=== PATIENT | female | born 1945 | race Caucasian/White ===

== ENCOUNTER → 2016-10-03 | Outpatient (CLI) | payer MEDICARE, OTHER ==
[~2016-10-03] MED LIST: ALEVE 220MG220 MG PO; BACTRIM DS 8001 TAB PO; DARVOCET A500 51 TAB PO; DOXYCYCLINE 10100 MG PO; FENTANYL BC; HCTZ; K-DUR 10 MEQ T10 MEQ PO; LASIX 20MG TABL20 MG PO; LEVOTHROID0.125 MG PO; LISINOPRIL5 MG PO; LORTAB 5/500 501 TAB PO; METOPROLOL SUCC25 MG PO; NEURONTIN600 MG/TAB PO; PHENERGAN 25 TA25 MG PO; PHENERGAN25 M1 PO; PRIL40 PO; SYNTHROID 0.10.15 MG PO; TOPROL XL50 MG PO; TYLENOL 325MG325 MG PO; VICODIN 5/5001 UDTAB PO; ZOFRAN 4MG T4 MG/TAB PO; ZOFRAN4 M1 PO; stool softener
== END ==
LOC: COL.RAD 10-02 10:30
DX: M25.552 Pain in left hip (principal); M16.12 Unilateral primary osteoarthritis, left hip
CPT/HCPCS: J3301; Q9967

== ENCOUNTER → 2016-11-11 | Outpatient (CLI) | payer MEDICARE, OTHER | LOC: COL.RAD 09:41 | DX: Z12.11 Encounter for screening for malignant neoplasm of colon (principal); K57.30 Diverticulosis of large intestine without perforation or abscess without bleeding; M16.12 Unilateral primary osteoarthritis, left hip; N28.9 Disorder of kidney and ureter, unspecified ==

== ENCOUNTER → 2017-02-20 | Outpatient (CLI) | payer MEDICARE, OTHER | LOC: COL.RAD 10:16 | DX: M25.552 Pain in left hip (principal) | CPT/HCPCS: J3301; Q9967 ==

== ENCOUNTER → 2017-05-01 | Outpatient (CLI) | payer MEDICARE, OTHER ==
[~2017-05-01] MED LIST changes: +ADDERALL XR20 MG PO; +CARAFATE 1GM1 G PO; +CIPRO 500MG TA500 MG PO; +COPAXONE 20M20 MG/M1 SQ; +FLAGYL500 MG PO; +K-TAB20 PO; +LASIX 40MG TABL40 MG PO; -LISINOPRIL5 MG PO; +MIRALAX PA17 GM/Dose PO; -PRIL40 PO; +PRILOSEC 20MG20 MG PO; +PRINIVIL20 MG PO; -SYNTHROID 0.10.15 MG PO; +SYNTHROID0.112 MG/T PO; +ZYVOX 600MG600 MG PO; +[UNRECOGNIZED DRUG - OTHER] PO
== END ==
LOC: COL.RAD 10:00
DX: G35 Multiple sclerosis (principal); R90.82 White matter disease, unspecified
CPT/HCPCS: A9585

== ENCOUNTER → 2017-05-25 | Outpatient (CLI) | payer MEDICARE, OTHER ==
[~2017-05-25] MED LIST changes: -ADDERALL XR20 MG PO; -CARAFATE 1GM1 G PO; -CIPRO 500MG TA500 MG PO; -COPAXONE 20M20 MG/M1 SQ; -FLAGYL500 MG PO; -K-TAB20 PO; -LASIX 40MG TABL40 MG PO; +LISINOPRIL5 MG PO; -MIRALAX PA17 GM/Dose PO; +PRIL40 PO; -PRILOSEC 20MG20 MG PO; -PRINIVIL20 MG PO; +SYNTHROID 0.10.15 MG PO; -SYNTHROID0.112 MG/T PO; -ZYVOX 600MG600 MG PO; -[UNRECOGNIZED DRUG - OTHER] PO
== END ==
LOC: COL.RAD 10:20
DX: M16.12 Unilateral primary osteoarthritis, left hip (principal)
CPT/HCPCS: J3301; Q9967

== ENCOUNTER → 2017-08-26 | Outpatient (CLI) | payer MEDICARE, OTHER | LOC: COL.RAD 10:03 | DX: M16.11 Unilateral primary osteoarthritis, right hip (principal) | CPT/HCPCS: J3301; Q9967 ==

== ENCOUNTER → 2017-12-25 | Outpatient (CLI) | payer MEDICARE, OTHER | LOC: COL.RAD 12-24 09:00 | DX: M25.552 Pain in left hip (principal) | CPT/HCPCS: J3301; Q9967 ==

== ENCOUNTER 2018-01-07 13:30 | Outpatient (RCR) | payer MEDICARE, OTHER ==
[2007-06-24 07:46] VITALS: BP 139/62
[2018-01-05 15:00] VITALS: BP 122/83; PULSE 66; TEMP 98
[2018-01-06 14:16] VITALS: BP 120/48; PULSE 64; TEMP 98.2
[~2018-01-07] VITALS: Ht 170.2 cm; Wt 83.6 kg
[~2018-01-07 13:30] MED LIST changes: -LISINOPRIL5 MG PO; +PRINIVIL20 MG PO
[2018-01-07 13:36] VITALS: BP 128/62; PULSE 70; TEMP 97.7
[2018-01-07] MEDS ORDERED: K-TAB20 PO (15:05)
[2018-01-07] MEDS ORDERED: LASIX 20MG TABL20 MG PO (15:05)
[2018-01-07] MEDS ORDERED: MIRALAX PA17 GM/Dose PO (15:07)
[2018-01-07] MEDS ORDERED: ADDERALL XR20 MG PO (17:41)
== END 2018-01-07 15:41 | disposition home or self-care (01) ==
LOC: EUO 13:30
DX: G35 Multiple sclerosis (principal)
CPT/HCPCS: J2930; J7050

== ENCOUNTER 2018-02-10 09:00 | Outpatient (RCR) | payer MEDICARE, OTHER ==
[~2018-02-10 09:00] MED LIST changes: +ADDERALL XR20 MG PO; +K-TAB20 PO; +MIRALAX PA17 GM/Dose PO
== END 2018-04-29 10:19 | disposition home or self-care (01) ==
LOC: MKS.ESL.PT 09:00
DX: G35 Multiple sclerosis (principal); R53.83 Other fatigue
CPT/HCPCS: G8978-GP; G8979-GP

== ENCOUNTER → 2018-05-18 | Outpatient (CLI) | payer MEDICARE, OTHER | LOC: COL.RAD 05-04 08:00 | DX: M16.12 Unilateral primary osteoarthritis, left hip (principal) | CPT/HCPCS: J3301; Q9967 ==

== ENCOUNTER 2018-07-18 09:14 | Observation (INO) | payer MEDICARE, OTHER ==
[~2018-07-18] VITALS: Ht 165.1 cm; Wt 89.4 kg
[2018-07-18 09:41] LABS: BASO % 0.5 % (0.0-2.0); EOS # 0.2 (0.0-0.7); EOS % 2.9 % (0-4.0); GRAN # 6.3 (1.4-6.5); GRAN % 74.2 % (42.2-75.2); HEMOGLOBIN 15.1 g/dl (12.5-16.0); LYMPH # 1.3 (1.2-3.4); LYMPH % 14.9 % (20.0-51.0); MEAN CELL VOLUME 87 fl (80.0-100.0); MEAN CORPUSCULAR HEMOGLOBIN 29 pg (27.0-31.0); MEAN CORPUSCULAR HGB CONC 34 g/dl (33.0-37.0); MEAN PLATELET VOLUME 9.8 fl (7.4-10.4); MONO # 0.6 (0.1-0.6); MONO % 7.3 % (1.7-9.3); PLATELET COUNT 236 K/mm3 (130-400); RED BLOOD COUNT 5.17 M/mm3 (4.10-5.30); REDCELL DISTRIBUTION WIDTH-CV 13.5 % (11.5-14.5)
[2018-07-18 09:52] LABS: ALANINE AMINOTRANSFERASE 30 U/L (9-52); ALBUMIN 3.5 gm/dL (3.5-5.0); ALKALINE PHOSPHATASE 68 U/L (50-136); ANION GAP 4 mmol/L (7-16); AST,SGOT 22 U/L (15-37); BILIRUBIN,TOTAL 0.5 mg/dL (0.0-1.0); BLOOD UREA NITROGEN 21 mg/dL (7-17); CARBON DIOXIDE 30 mmol/L (22-30); CHLORIDE 101 mmol/L (98-107); CREATININE, serum 0.78 mg/dL (0.52-1.25); GLUCOSE 117 mg/dL (74-106); LIPASE 33 U/L (23-300); MAGNESIUM 1.7 mg/dL (1.6-2.3); PHOSPHOROUS 3.5 mg/dL (2.5-4.5); POTASSIUM 4.4 mmol/L (3.4-5.0); SODIUM 135 mmol/L (137-145); TOTAL PROTEIN 6.2 gm/dL (6.4-8.2)
[2018-07-18 09:57] VITALS: BP 116/60; PULSE 47
[2018-07-18] MEDS ORDERED: COPAXONE 20M20 MG/M1 SQ (09:57)
[2018-07-18 10:20] LABS: TROPONIN-I < 0.012 ng/mL (0.000-0.034)
[2018-07-18] MEDS ORDERED: CARAFATE 1GM1 G PO (13:55)
[2018-07-18 15:52] LABS: COLLECTION METHOD CLEAN CATCH
[2018-07-18 16:04] LABS: PH 6 (5-8); SQUAMOUS EPITHELIAL 0-2 /hpf; URINE APPEARANCE Clear; URINE BACTERIA None Seen /hpf; URINE BILIRUBIN Negative (NEGATIVE); URINE BLOOD Negative (NEGATIVE); URINE COLOR Yellow; URINE GLUCOSE Negative (NEGATIVE); URINE KETONE Negative (NEGATIVE); URINE LEUKOCYTE ESTERASE Negative (NEGATIVE); URINE NITRATE Negative (NEGATIVE); URINE PROTEIN(semi-quant) Negative (NEGATIVE); URINE RBC 0-2 /hpf; URINE UROBILINOGEN Negative (NEGATIVE)
[2018-07-18 16:20] VITALS: BP 161/74; PULSE 51; TEMP 98.2
[2018-07-18 20:01] VITALS: BP 150/55; PULSE 61; TEMP 97.9
[2018-07-18 20:30] VITALS: BP 160/62; PULSE 53; TEMP 98.2
[2018-07-19 01:00] VITALS: BP 117/31; PULSE 74; TEMP 98.4
[2018-07-19 04:27] VITALS: BP 135/50; PULSE 81; TEMP 98.5
[2018-07-19 07:14] VITALS: BP 122/52; PULSE 62; TEMP 98.4
[2018-07-19 07:50] LABS: BASO % 0.7 % (0.0-2.0); EOS # 0.2 (0.0-0.7); EOS % 4.2 % (0-4.0); GRAN # 2.9 (1.4-6.5); GRAN % 63.8 % (42.2-75.2); LYMPH # 0.9 (1.2-3.4); LYMPH % 20.6 % (20.0-51.0); MEAN CELL VOLUME 88 fl (80.0-100.0); MEAN CORPUSCULAR HGB CONC 33 g/dl (33.0-37.0); MEAN PLATELET VOLUME 10.5 fl (7.4-10.4); MONO # 0.5 (0.1-0.6); MONO % 10.7 % (1.7-9.3); PLATELET COUNT 166 K/mm3 (130-400); REDCELL DISTRIBUTION WIDTH-CV 13.7 % (11.5-14.5)
[2018-07-19 07:51] LABS: HEMATOCRIT 35.2 % (37.0-47.0); HEMOGLOBIN 11.6 g/dl (12.5-16.0); MEAN CORPUSCULAR HEMOGLOBIN 29 pg (27.0-31.0)
[2018-07-19 08:04] LABS: CALCIUM 8.5 mg/dL (8.4-10.2); CREATININE, serum 0.65 mg/dL (0.52-1.25)
[2018-07-19 11:36] VITALS: BP 153/75; PULSE 66; TEMP 98.9
[2018-07-19] MEDS ORDERED: CIPRO 500MG TA500 MG PO (15:13)
[2018-07-19] MEDS ORDERED: FLAGYL500 MG PO (15:13)
[2018-07-19 15:32] VITALS: BP 175/58; PULSE 65; TEMP 98.2
== END 2018-07-19 20:00 | disposition home or self-care (01) ==
LOC: COL.ER 09:14 → MEDICAL 12:05
PROVIDERS: Emergency Medicine; Hospitalist
DX: R53.1 Weakness (principal); K52.9 Noninfective gastroenteritis and colitis, unspecified; E87.1 Hypo-osmolality and hyponatremia; E03.9 Hypothyroidism, unspecified; I10 Essential (primary) hypertension; R79.89 Other specified abnormal findings of blood chemistry; G35 Multiple sclerosis; M16.9 Osteoarthritis of hip, unspecified; Z90.710 Acquired absence of both cervix and uterus; Z85.41 Personal history of malignant neoplasm of cervix uteri; Z90.49 Acquired absence of other specified parts of digestive tract; G89.29 Other chronic pain; Z88.0 Allergy status to penicillin; Z88.5 Allergy status to narcotic agent; Z88.8 Allergy status to other drugs, medicaments and biological substances; Z88.1 Allergy status to other antibiotic agents; Z86.14 Personal history of Methicillin resistant Staphylococcus aureus infection; Z82.3 Family history of stroke; Z82.49 Family history of ischemic heart disease and other diseases of the circulatory system; Z83.3 Family history of diabetes mellitus; Z80.42 Family history of malignant neoplasm of prostate
CPT/HCPCS: G0378; G8978-GP; G8979-GP; G8987-GO; G8988-GO; J0744; J1644; J7030; Q9967

== ENCOUNTER 2019-03-08 19:44 | Inpatient (IN) | payer MEDICARE, OTHER ==
[~2019-03-08] VITALS: Ht 165.1 cm; Wt 91.6 kg
[~2019-03-08 19:44] MED LIST changes: +CARAFATE 1GM1 G PO; +CIPRO 500MG TA500 MG PO; +COPAXONE 20M20 MG/M1 SQ; +FLAGYL500 MG PO; +LASIX 40MG TABL40 MG PO; -PRIL40 PO; +PRILOSEC 20MG20 MG PO; -SYNTHROID 0.10.15 MG PO; +SYNTHROID0.112 MG/T PO
[2019-03-08 20:49] LABS: BASO % 0.3 % (0.0-2.0); EOS # 0.1 (0.0-0.7); EOS % 1.1 % (0-4.0); GRAN # 9.4 (1.4-6.5); GRAN % 88.5 % (42.2-75.2); HEMATOCRIT 38.4 % (37.0-47.0); LYMPH # 0.7 (1.2-3.4); LYMPH % 6.2 % (20.0-51.0); MEAN CELL VOLUME 88 fl (80.0-100.0); MEAN CORPUSCULAR HEMOGLOBIN 30 pg (27.0-31.0); MEAN CORPUSCULAR HGB CONC 34 g/dl (33.0-37.0); MEAN PLATELET VOLUME 8.9 fl (7.4-10.4); MONO # 0.4 (0.1-0.6); MONO % 3.6 % (1.7-9.3); PLATELET COUNT 199 K/mm3 (130-400); RED BLOOD COUNT 4.37 M/mm3 (4.10-5.30); REDCELL DISTRIBUTION WIDTH-CV 13.6 % (11.5-14.5)
[2019-03-08 21:15] LABS: ALANINE AMINOTRANSFERASE 12 U/L (9-52); ALBUMIN 3.9 gm/dL (3.5-5.0); ALKALINE PHOSPHATASE 81 U/L (50-136); ANION GAP 11 mmol/L (7-16); AST,SGOT 24 U/L (15-37); BILIRUBIN,TOTAL 0.4 mg/dL (0.0-1.0); BLOOD UREA NITROGEN 22 mg/dL (7-17); CALCIUM 9.4 mg/dL (8.4-10.2); CARBON DIOXIDE 27 mmol/L (22-30); CHLORIDE 96 mmol/L (98-107); GLUCOSE 97 mg/dL (74-106); POTASSIUM 4.1 mmol/L (3.4-5.0); SODIUM 134 mmol/L (137-145); TOTAL PROTEIN 6.8 gm/dL (6.4-8.2)
[2019-03-08 21:16] LABS: C-REACTIVE PROTEIN < 0.5 mg/dL (0.0-0.9)
[2019-03-08] MEDS ORDERED: DOXYCYCLINE 10100 MG PO (21:49)
[2019-03-09] VITALS (7 sets, daily range): BP systolic 117–152; BP diastolic 36–61; PULSE 69–89; TEMP 98–98.7
[2019-03-09] MEDS ORDERED: [UNRECOGNIZED DRUG - OTHER] PO (00:09)
--- NOTE | 2019-03-09 00:48 | NUR ---
Patient arrived to medical floor room 352 at approximately 2325. Alert and oriented x4, and able to make needs known. Denies having pain and discomfort, except does report pain to BLE if pressed on. Peripheral IV site to right AC flushed. Site is without redness, warmth, swelling, and pain. Completed IV Rocephin when arrived from ER. Denies having SOB and dyspnea. Respirations even and unlabored. LS CTA. Denies chest pain and discomfort. HRR. BSAx4. Abdomen soft and non-tender. Denies nausea, vomiting, diarrhea, and upset stomach. Reports occasional constipation, but deniess at this time. 3+ edema BLE. Reports lymph nodes were taken out during hysterectomy and edema is chronic. LLE with errythema and warmth. Four puncture sites noted from cat bite, but are not open. No drainage to area noted. Patient has a history of MRSA. Put on contact isolation. Given OJ, water, crackers, and ice-cream as requested. Voices no other questions, needs, or concerns at this time. Sitting up in bed watching TV at this time. Call light is within reach.
--- NOTE | 2019-03-09 05:29 | NUR ---
Patient has been calling for assistance with toileting. Has been using facility walker to help with mobility. Denies pain and discomfort to LLE. Reports she just feels weak. Stand by assist used. Gait slightly unsteady. Resting in bed with eyes closed at this time. Call light is within reach.
[2019-03-09 06:46] LABS: MEAN CELL VOLUME 88 fl (80.0-100.0); MEAN CORPUSCULAR HEMOGLOBIN 30 pg (27.0-31.0); MEAN CORPUSCULAR HGB CONC 34 g/dl (33.0-37.0); MEAN PLATELET VOLUME 9.1 fl (7.4-10.4); PLATELET COUNT 177 K/mm3 (130-400); RED BLOOD COUNT 4.04 M/mm3 (4.10-5.30); REDCELL DISTRIBUTION WIDTH-CV 13.7 % (11.5-14.5)
[2019-03-09 06:48] LABS: HEMATOCRIT 35.5 % (37.0-47.0)
[2019-03-09 07:02] LABS: CALCIUM 8.8 mg/dL (8.4-10.2); CREATININE, serum 0.7 (0.52-1.25); POTASSIUM 4.2 mmol/L (3.4-5.0)
--- NOTE | 2019-03-09 07:03 | NUR ---
Report given to day shift nurse.
[2019-03-09 07:49] LABS: ANISOCYTOSIS 1+; BAND 10 % (0-10); HYPOCHROMIA 1+; LYMPHOCYTE 6 % (20.0-51.0); MICROCYTOSIS 1+; NEUTROPHILS 83 % (42.0-75.2); PLATELET ESTIMATE NORMAL (NORMAL)
--- NOTE | 2019-03-09 11:00 | NUR ---
SW attended clinical rounds to discuss discharge planning. Patient lives independently at home alone. Patient's PCP is Dr Rivera and [facility] Patient uses cane or a walker and does not currently have home health services. Patient reports she would like to get home health services arranged when she is discharged. SW presented medicare.gov resource list. Patient chose [facility]. ENRICO will fax a referral once PT/OT complete evaluations.
--- NOTE | 2019-03-09 11:59 | NUR ---
Initial visit; Patient thanked Practice Administrator for looking in on her providing Spiritual Care and offering prayer for her and her friend.
--- NOTE | 2019-03-09 18:05 | NUR ---
Patient is visiting with a friend, was wondering if she could go home after her antibiotic. Spoke with provider and he stated he would feel better if she would stay one more night for observation. This was explained to patient and she agreed. Call light and personal items are within reach.
--- NOTE | 2019-03-09 20:25 | NUR ---
Resting in bed. Assessment complete. Lungs clear. Heart sounds normal. Bowels active x4. Pulses present throughout. Bilateral lower leg edema +1. Left lower leg erythema present with x4 puncture garcia from cat bite. Patient denies pain. erythema does not exceed lines marked on leg. area not warmer than surrounding skin. Patient denies other needs at this time. Call light in reach.
--- NOTE | 2019-03-09 23:24 | NUR ---
Report 4/10 pain in left lower leg. Provided with PRN tylenol.
--- NOTE | 2019-03-10 02:54 | NUR ---
Resting in bed. Call light in reach.
[2019-03-10 03:59] VITALS: BP 132/49; PULSE 68; TEMP 97.8
--- NOTE | 2019-03-10 05:36 | NUR ---
Patient required x1 dose of tylenol for left lower leg pain throughout night. Otherwise uneventful. Resting in bed this AM.
--- NOTE | 2019-03-10 06:36 | NUR ---
Patient reports erythema in left inner groin. Area marked. Feels warm to touch. Patient denies pain in area. Will closely monitor and pass to next shift for assessment by physician.
--- NOTE | 2019-03-10 06:54 | NUR ---
Report given to ATUL Reece
[2019-03-10 07:23] LABS: BASO % 0.6 % (0.0-2.0); EOS # 0.2 (0.0-0.7); EOS % 2.2 % (0-4.0); GRAN # 5.7 (1.4-6.5); GRAN % 81.1 % (42.2-75.2); HEMOGLOBIN 11.2 g/dl (12.5-16.0); LYMPH # 0.6 (1.2-3.4); LYMPH % 8.3 % (20.0-51.0); MEAN CELL VOLUME 89 fl (80.0-100.0); MEAN CORPUSCULAR HEMOGLOBIN 30 pg (27.0-31.0); MEAN CORPUSCULAR HGB CONC 34 g/dl (33.0-37.0); MEAN PLATELET VOLUME 9.2 fl (7.4-10.4); MONO # 0.5 (0.1-0.6); MONO % 7.5 % (1.7-9.3); PLATELET COUNT 157 K/mm3 (130-400); RED BLOOD COUNT 3.75 M/mm3 (4.10-5.30)
[2019-03-10 07:25] LABS: HEMATOCRIT 33.4 % (37.0-47.0)
[2019-03-10 07:43] LABS: CALCIUM 8.9 mg/dL (8.4-10.2); CREATININE, serum 0.77 (0.52-1.25); POTASSIUM 3.7 mmol/L (3.4-5.0)
[2019-03-10 09:00] VITALS: BP 1139/60; PULSE 60; TEMP 97.5
--- NOTE | 2019-03-10 09:08 | NUR ---
Received report this morning, reporting nurse and this nurse visualized left groin to be reddened and warm. Was outlined by reporting nurse. Patient verbalzies she has increased concern that she is not being administered the correct antibiotic. Spoke with provider regarding concern. Will address on rounds. No other needs verbalized. Call light and persona items are within reach.
--- NOTE | 2019-03-10 10:38 | NUR ---
Follow-up visit; Patient thanked Parts Counter Associate for looking in on her again today and states she is feeling a little better. Parts Counter Associate wished her well and offered God's blessings.
[2019-03-10 16:20] VITALS: BP 122/39; BP 124/39; PULSE 77; TEMP 97.9
[2019-03-10 19:01] VITALS: BP 150/48; PULSE 71; TEMP 98
--- NOTE | 2019-03-10 19:06 | NUR ---
Patient is visiting with friend. Has no needs at this time. Call light and personal items are within reach.
[2019-03-10 19:44] VITALS: BP 155/84; PULSE 103; TEMP 98.4
--- NOTE | 2019-03-10 20:00 | NUR ---
Patient sitting at bedside. Assessment completed. Left lower extremity erythema present with 4 puncture sites from bite. Left upper extremity/groin erythema present and warm to touch. Borders marked on both areas. Left lower leg has no change from previous assessment. Left upper erythema has moved distal slightly outside markings. Patient reports she is unhappy with hospital stay due to the delay in start of vanco. Patient voiced several concerns, concerns passed on to house supervisior, house supervisior spoke with patient. Patient stated she will take concerns newpaper if needed, but hopes situation will be resolved. Patient current has vanco ordered Q12H, next dose ordered for 03/11/2019 at 0000. Denies other needs at this time. Call light in reach.
[2019-03-10 23:29] VITALS: BP 146/61; PULSE 70; TEMP 98.2
--- NOTE | 2019-03-11 | NUR ---
INT right hand leaking. Restarted left hand by ATUL Johnson. Denies needs at this time. Call light in reach.
--- NOTE | 2019-03-11 02:14 | NUR ---
Resting in bed. Denies needs at this time. Call light in reach.
[2019-03-11 04:09] VITALS: BP 147/56; PULSE 61; TEMP 98.3
--- NOTE | 2019-03-11 06:06 | NUR ---
Patient had uneventful night. Reports left leg "feeling much better." Resting in bed this AM. Denies needs at this time. Call light in reach.
[2019-03-11 06:20] LABS: BASO % 0.9 % (0.0-2.0); EOS # 0.2 (0.0-0.7); EOS % 3.7 % (0-4.0); GRAN % 64.9 % (42.2-75.2); HEMOGLOBIN 11.4 g/dl (12.5-16.0); LYMPH # 0.8 (1.2-3.4); LYMPH % 16.9 % (20.0-51.0); MEAN CELL VOLUME 90 fl (80.0-100.0); MEAN CORPUSCULAR HEMOGLOBIN 30 pg (27.0-31.0); MEAN CORPUSCULAR HGB CONC 33 g/dl (33.0-37.0); MEAN PLATELET VOLUME 9.5 fl (7.4-10.4); MONO # 0.6 (0.1-0.6); MONO % 13.2 % (1.7-9.3); PLATELET COUNT 169 K/mm3 (130-400); RED BLOOD COUNT 3.84 M/mm3 (4.10-5.30); REDCELL DISTRIBUTION WIDTH-CV 13.8 % (11.5-14.5)
[2019-03-11 06:21] LABS: HEMATOCRIT 34.4 % (37.0-47.0)
[2019-03-11 06:38] LABS: CALCIUM 9.2 mg/dL (8.4-10.2); CREATININE, serum 0.69 (0.52-1.25); POTASSIUM 4.1 mmol/L (3.4-5.0)
--- NOTE | 2019-03-11 07:10 | NUR ---
Report given to ATUL Reece
[2019-03-11 07:45] VITALS: BP 176/67; PULSE 64; TEMP 98.4
--- NOTE | 2019-03-11 09:10 | NUR ---
Patient resting in bed on right side. Did wake up to voice and conversed with nursing. Did express concern again about antibioics that she recieved prior to vancomycin, did reassue that there was pharmacy staff and providers available to discuss issues with. She is aware. Does verbalize she feels that her leg is improving. States she has little pain this morning. Call light and personal items are within reach.
[2019-03-11 11:20] VITALS: BP 147/57; PULSE 78; TEMP 97.8
--- NOTE | 2019-03-11 13:48 | NUR ---
ENRICO met with patient to discuss outpatient IV antibiotics. She reports she would like to come to the express unit and doesn't feel she needs home health. ENRICO talked with her about coming into the ER if its thursday and the admissions enterance during the week and sat. ENRICO called Express charge who said they will need to change the times of her IV antibiotics to 630 am and 630 pm. Nurse informed. ENRICO will fax order and discharge summary at discharge to express.
[2019-03-11 16:15] VITALS: BP 178/93; PULSE 65; TEMP 97.8
--- NOTE | 2019-03-11 16:22 | NUR ---
IV therapy is unable to place PICC line, did ask provider for other option and was instructed that we could place a peripheral line. Patient has poor venous access and they are aware. Was advised by housetrailer servicer to give other options to providers, they were called again. Was instructed to hold off on peripheral access until alternative therapies were discussed.
--- NOTE | 2019-03-11 17:55 | NUR ---
Patient is in bed looking at menu. Had questions regarding the next step for her antibiotic if she is unable to have IV access. I did administer her a PO antibiotic and gave some verbal education regarding the med. She verbalized that she was pleased with the new medication. No other concens verbalized. Call light and personal items are within reach.
[2019-03-11 19:22] VITALS: BP 160/61; PULSE 73; TEMP 98.3
--- NOTE | 2019-03-11 20:00 | NUR ---
PT IN ROOM AND WASHING UNDERGARMENT IN SINK. OFFERED PULL-UPS TO PATIENT AND BROUGHT THEM INTO TO HER. PT WAS ASSISTED TO PLACE ON. PT ADVISES THAT SHE REALLY LIKES HOW THE PULL-UP FEELS. PATIENTS LEFT LOWER EXTREMITY HAS STILL HAS EDEMA AT A +3 AND MARKINGS OF REDNESS IS DECREASING FROM LINES. PT ALSO FEELS THAT THE INFECTION IS GETTING BETTER. PT HAS NO FURTHER NEEDS CALL LIGHT WITHIN REACH.
[2019-03-11 23:25] VITALS: BP 133/61; PULSE 66; TEMP 98.3
[2019-03-12 03:22] VITALS: BP 150/71; PULSE 63; TEMP 98.2
--- NOTE | 2019-03-12 08:00 | NUR ---
Pt lying in bed c/o headache and being cold. PRN tylenol already administered, gave warm blanket. Pt breathing even and unlabored, denies shortness of breath. Completed morning assessment, breath sounds clear. Pt state she is feeling worse today. Feeling weak and tired. No IV access and on PO antibiotics. Marking on left leg still present, redness has has receded. No redness noted on thigh and only small corner of redness on lower leg. Gave pt education on the PO antibiotic as pt was interested learning more. Denies any other needs. Will continue to monitor. Call light in reach.
[2019-03-12 11:57] VITALS: PULSE 62; TEMP 98
[2019-03-12 12:02] VITALS: BP 185/85
[2019-03-12 13:12] VITALS: BP 145/57
--- NOTE | 2019-03-12 13:30 | NUR ---
Pt sitting in bed, rechecked blood pressure as previous reading was high, blood pressure down to 145/53. Pt requested temp taken, temp normal. Pt feels confident she can handle going home today. Pt in no beckett to leave, pt understands we are waiting on paperwork and the doctors final discharge note. Will follow up, call light in reach.
[2019-03-12] MEDS ORDERED: ZYVOX 600MG600 MG PO (15:44)
--- NOTE | 2019-03-12 16:25 | NUR ---
All discharge paperwork reviewed, all questions asked and answered. Pt has all belongings gathered. Pt has no IV access to discontinue. Pt taken out via wheelchair by [facility] staff, family friend downstairs to take pt home.
--- NOTE | 2019-03-17 15:34 | NUR ---
Patient contacted about getting set up with [facility]. Discharge orders were updated and faxed to [facility].
--- NOTE | 2019-03-18 09:53 | NUR ---
utilities ground worker contacted [facility] and confirmed that they will call patient today. Worker contacted patient and advised of the above information.
== END 2019-03-12 16:20 | disposition home or self-care (01) | DRG 605 ==
LOC: COL.ER 19:44 → MEDICAL 22:47
PROVIDERS: Emergency Medicine; Nurse Practitioner; Nurse Practitioner Family; Physician Assistant; ADMIT Family Medicine
DX: S81.852A Open bite, left lower leg, initial encounter (principal); L03.116 Cellulitis of left lower limb; W55.01XA Bitten by cat, initial encounter; Y92.019 Unspecified place in single-family (private) house as the place of occurrence of the external cause; G35 Multiple sclerosis; I10 Essential (primary) hypertension; E03.9 Hypothyroidism, unspecified; I89.0 Lymphedema, not elsewhere classified; Z85.42 Personal history of malignant neoplasm of other parts of uterus; R53.81 Other malaise; K21.9 Gastro-esophageal reflux disease without esophagitis
CPT/HCPCS: 99222-AI; 99232-AI; 99239; A4216; C1751; C1892; J0696; J1644; J3370; J7030; J7050

== ENCOUNTER 2019-05-16 13:45 | Outpatient (RCR) | payer MEDICARE, OTHER ==
[~2019-05-16 13:45] MED LIST changes: +ZYVOX 600MG600 MG PO; +[UNRECOGNIZED DRUG - OTHER] PO
== END 2019-05-17 | disposition still patient (30) ==
LOC: MKS.ESL.PT
DX: G35 Multiple sclerosis (principal); G60.9 Hereditary and idiopathic neuropathy, unspecified

== ENCOUNTER → 2019-10-03 | Outpatient (CLI) | payer MEDICARE, OTHER | LOC: COL.RAD 11:00 | DX: M16.12 Unilateral primary osteoarthritis, left hip (principal); M21.70 Unequal limb length (acquired), unspecified site ==

== ENCOUNTER → 2020-03-19 | Outpatient (CLI) | payer MEDICARE, OTHER | LOC: COL.RAD 10:38 | DX: M16.12 Unilateral primary osteoarthritis, left hip (principal); M62.552 Muscle wasting and atrophy, not elsewhere classified, left thigh ==

== ENCOUNTER → 2020-04-24 | Outpatient (CLI) | payer MEDICARE, OTHER | LOC: ZCOL.LAB 10:25 | DX: Z20.828 Contact with and (suspected) exposure to other viral communicable diseases (principal) ==

== ENCOUNTER → 2020-09-17 | Outpatient (CLI) | payer MEDICARE, OTHER | LOC: COL.RAD 08:46 | DX: Z98.890 Other specified postprocedural states (principal); Z96.642 Presence of left artificial hip joint ==

== ENCOUNTER 2020-10-19 14:30 | Outpatient (RCR) | payer MEDICARE, OTHER ==
[2020-12-03] MEDS ORDERED: TYLENOL 500MG500 MG PO (12:39)
[2020-12-03] MEDS ORDERED: MAGNESIUM500 MG PO (12:39)
[2020-12-03] MEDS ORDERED: PHARMASSURE ZIN50 MG PO (12:40)
[2020-12-03] MEDS ORDERED: VITAMINC1000TA PO (12:41)
[2020-12-03] MEDS ORDERED: FOLIC ACID 11 MG/TA1 PO (12:41)
[2020-12-03] MEDS ORDERED: MASON NATURAL2000 IU PO (12:42)
[2020-12-03] MEDS ORDERED: FERROUS SU325 MG/TAB PO (12:43)
[2020-12-03] MEDS ORDERED: FERROUS SU300 MG/5 M PO (12:43)
== END 2020-12-19 14:02 ==
LOC: MKS.ESL.PT
DX: G35 Multiple sclerosis (principal); Z96.642 Presence of left artificial hip joint; T85.9XXA Unspecified complication of internal prosthetic device, implant and graft, initial encounter

== ENCOUNTER 2020-10-30 14:39 | Observation (INO) | payer MEDICARE, OTHER ==
[~2020-10-30] VITALS: Ht 167.6 cm; Wt 78.6 kg
[2020-12-03] MEDS ORDERED: MAGNESIUM500 MG PO (12:39)
[2020-12-03] MEDS ORDERED: TYLENOL 500MG500 MG PO (12:39)
[2020-12-03] MEDS ORDERED: PHARMASSURE ZIN50 MG PO (12:40)
[2020-12-03] MEDS ORDERED: FOLIC ACID 11 MG/TA1 PO (12:41)
[2020-12-03] MEDS ORDERED: VITAMINC1000TA PO (12:41)
[2020-12-03] MEDS ORDERED: MASON NATURAL2000 IU PO (12:42)
[2020-12-03] MEDS ORDERED: FERROUS SU300 MG/5 M PO (12:43)
[2020-12-03] MEDS ORDERED: FERROUS SU325 MG/TAB PO (12:43)
--- NOTE | 2020-12-03 13:00 | NUR ---
PATIENT ON THE UNIT FROM ADMISSIONS. PATIENT IS HERE TO PERFORM HER BOWEL PREP FOR EGD/COLONOSCOPY THAT IS SCHEDULED IN THE MORNING. MED REC AND ADMISSION PAPERWORK COMPLETED. PATIENT PUT IN A GOWN AND YELLOW SOCKS. NON PITTING EDEMA NOTED IN BILATERAL LOWER EXTREMITES. IV STARTED IN RIGHT AC ON FIRST ATTEMPT, NO INFILTRATION NOTED. SITE IS CLEAN DRY AND INTACT.
--- NOTE | 2020-12-03 13:40 | NUR ---
PATIENT REPORTS THAT SHE BUMPED HER ARM ON THE SIDE OF HER RECLINER ATTMEPTING TO LEAN IT BACK. IV SITE APPEARS TO HAVE A SMALL SKIN TEAR, PUSHING THE IV HUB FURTHER INTO THE VEIN. IV FLUSHES WITHOUT INFILTRATION AND PAIN. WILL CONTINUE TO MONITOR.
--- NOTE | 2020-12-03 14:30 | NUR ---
Patient settled into room 326. Keiry Correa rounded. I called office, bowel prep orders clarified. Patient brought her own Go lytly. Pharmacy did bring her lemon flavoring per her request. Patient has her instructions from office she is following. Med rec reviewed and completed.
[2020-12-03 16:18] VITALS: BP 116/52; PULSE 59; TEMP 97.7
--- NOTE | 2020-12-03 17:20 | NUR ---
PATIENT IS BEGINNING TO HAVE MORE FREQUENT STOOLS, ABOUT EVERY 5-10 MINUTES. HOWEVER, THE BOWEL MOVEMENTS ARE NOT CLEAR YET SO SHE IS STILL DRINKING THE GOLYTELY AT THIS MOMEMNT.
--- NOTE | 2020-12-03 17:59 | NUR ---
Patient bowel prep working, she has been up to the bathrom frequently. Loose stools. Over half way done with cyndi roberto.
--- NOTE | 2020-12-03 18:50 | NUR ---
Bedside report to Yumiko RN
[2020-12-03 19:58] VITALS: BP 149/60; PULSE 50; TEMP 97.8
--- NOTE | 2020-12-03 20:00 | NUR ---
Pt almost done drinking prep for colonoscopy. Stools are clear. Pt is alert and oriented x4. Has SL to right AC.
--- NOTE | 2020-12-03 22:00 | NUR ---
Pt in bed. Both legs elevated on pillows d/t swelling. IVF connected and infusing without problem. Will be NPO after midnight.
[2020-12-04] VITALS (9 sets, daily range): BP systolic 120–157; BP diastolic 30–92; PULSE 51–70; TEMP 97.8–98.7
--- NOTE | 2020-12-04 05:00 | NUR ---
Pt up to bathroom, has clear stool and back to bed. IVF continue. Offers no complaints.
[2020-12-04 07:05] LABS: BASO % 0.8 % (0.0-2.0); EOS # 0.2 (0.0-0.7); EOS % 5.3 % (0-4.0); GRAN # 1.9 (1.4-6.5); GRAN % 53.9 % (42.2-75.2); HEMOGLOBIN 10.7 g/dl (12.5-16.0); LYMPH % 27.8 % (20.0-51.0); MEAN CELL VOLUME 90 fl (80.0-100.0); MEAN CORPUSCULAR HEMOGLOBIN 30 pg (27.0-31.0); MEAN CORPUSCULAR HGB CONC 33 g/dl (33.0-37.0); MEAN PLATELET VOLUME 9.7 fl (7.4-10.4); MONO # 0.4 (0.1-0.6); MONO % 11.9 % (1.7-9.3); PLATELET COUNT 189 K/mm3 (130-400); RED BLOOD COUNT 3.61 M/mm3 (4.10-5.30); REDCELL DISTRIBUTION WIDTH-CV 13.9 % (11.5-14.5)
[2020-12-04 07:09] LABS: HEMATOCRIT 32.6 % (37.0-47.0)
[2020-12-04 07:19] LABS: CREATININE, serum 0.77 (0.52-1.25); POTASSIUM 3.8 mmol/L (3.4-5.0)
--- NOTE | 2020-12-04 08:42 | NUR ---
Hospitalist in to see patient.
--- NOTE | 2020-12-04 08:42 | NUR ---
Patient to Endo by tory.
--- NOTE | 2020-12-04 09:55 | NUR ---
Patient up from Endo. Alert and oriented. Post op fluids infusing per orders Post op VSS. Denies further needs at this time.
--- NOTE | 2020-12-04 10:53 | NUR ---
Doing well, eating breakfast at this time. Denies further needs at this time.
--- NOTE | 2020-12-04 10:59 | NUR ---
Billiard Player met with patient to discuss discharge planning. Patient lives alone in [place] and sees Dr. Rivera for primary care. Patient has medications delivered to her home from [facility] with no difficulties. Patient has two forearm canes for ambulation and also has a walker at home. Patient is normally independent with ADLS and states she is typically "on the go". Patient also advised she still drives. Patient does not have Advance Directives and is not interested in signing DPOA-HC at this time. Patient states she has two children, Candelaria and Brandan who live out of state. Patient plans to return home upon discharge, which should be today. Patient advised she already has made arrangements for a ride home.
--- NOTE | 2020-12-04 12:10 | NUR ---
Discharge education provided to patient. Educated on when to call provider and follow up appointments. All questions answered. INT to RAC discontinued, catheter tip intact. Denies further needs at this time. Patient out by wheelchair with surgical staff and family.
== END 2020-12-04 12:09 | disposition home or self-care (01) ==
LOC: SURG 12-03 12:16 → SDCO 12-04 08:45 → EDSTATUS 12-04 09:15 → SURG 12-04 12:09
PROVIDERS: Physician Assistant; ADMIT Internal Medicine
DX: K57.10 Diverticulosis of small intestine without perforation or abscess without bleeding (principal); D50.9 Iron deficiency anemia, unspecified; K64.0 First degree hemorrhoids; Z98.0 Intestinal bypass and anastomosis status; Z85.41 Personal history of malignant neoplasm of cervix uteri; G35 Multiple sclerosis; I10 Essential (primary) hypertension; K21.9 Gastro-esophageal reflux disease without esophagitis; E03.9 Hypothyroidism, unspecified; R53.81 Other malaise; Z90.710 Acquired absence of both cervix and uterus; Z88.0 Allergy status to penicillin; Z88.5 Allergy status to narcotic agent; Z88.8 Allergy status to other drugs, medicaments and biological substances; G89.29 Other chronic pain; Z20.822 Contact with and (suspected) exposure to COVID-19
CPT/HCPCS: G0378; G0379; J2704; J7030

== ENCOUNTER 2020-12-14 15:15 | Outpatient (RCR) | payer MEDICARE, OTHER ==
[~2020-12-14 15:15] MED LIST changes: +FERROUS SU300 MG/5 M PO; +FERROUS SU325 MG/TAB PO; +FOLIC ACID 11 MG/TA1 PO; +MAGNESIUM500 MG PO; +MASON NATURAL2000 IU PO; +PHARMASSURE ZIN50 MG PO; +TYLENOL 500MG500 MG PO; +VITAMINC1000TA PO
== END 2021-03-03 ==
LOC: MKS.ESL.PT
DX: M17.11 Unilateral primary osteoarthritis, right knee (principal)

== ENCOUNTER 2021-02-11 10:49 | Outpatient (RCR) | payer MEDICARE, OTHER | END 2021-02-20 16:36 | disposition home or self-care (01) | LOC: MKS.ESL.PT 10:49 | DX: Q65.89 Other specified congenital deformities of hip (principal) ==

== ENCOUNTER 2021-05-07 05:36 | Inpatient (IN) | payer MEDICARE ==
[2021-05-07] VITALS (13 sets, daily range): BP systolic 107–160; BP diastolic 40–107; PULSE 49–66; TEMP 97.3–98.2
[~2021-05-07] VITALS: Ht 167.6 cm; Wt 78.6 kg
--- NOTE | 2021-05-07 07:10 | NUR ---
Patient taken to PACU per Vic Menendez CRNA and all belongings taken to PACU.
--- NOTE | 2021-05-07 10:24 | NUR ---
Pt arrived to the floor from PACU. She is alert and oriented although nauseated. BP was hypertensive upon arrival, but pt was dry heaving as well as restless in bed. Rechecked BP once pt calmed down and it did improve. Pt now resting comfortably with eyes closed and even non labored breathing. Ice pack to right knee. Call light within reach.
--- NOTE | 2021-05-07 13:12 | NUR ---
Pt remains pretty sleepy. She does wake easily, but then does fall back asleep after conversation. Ice chips at bedside, call light within reach
--- NOTE | 2021-05-07 14:41 | NUR ---
Pt starting to become more awake. Gave her some applesauce and crackers. Pt tolerating well, but states she still feels a little nauseated. No other needs, VSS, call light within reach
--- NOTE | 2021-05-07 16:42 | NUR ---
Pt more awake now. She was educated on how to use the incentive spirometer and does use it correctly. PRN pain medication given at this time. Discussed room service. No other needs verbalized, call light within reach
--- NOTE | 2021-05-07 17:50 | NUR ---
Pt recently had emesis, reported it appeared there was some medication in it, most likely norco. PRN phenergan given. Pt BP elevated, rechecked on left arm and BP was within normal limits. Pt was much more drowsy and was slurring her words. Dr Kennedy notified, orders received.
--- NOTE | 2021-05-07 18:23 | NUR ---
Tania REES notified of consult and updated on pt condition
--- NOTE | 2021-05-07 18:41 | NUR ---
CABRERA Marin, lab and radiology have all been in with pt. Pt is now mostly unresponsive. She does grimace with sternal rub. VS continue to be stable. BP 111/42, pulse 55, resp 16, o2 98% on room air. Tania on the phone with family giving an update
[2021-05-07 18:47] LABS: BASO % 0.4 % (0.0-2.0); EOS % 0.1 % (0-4.0); GRAN # 6.5 (1.4-6.5); GRAN % 85.1 % (42.2-75.2); HEMOGLOBIN 10.2 g/dl (12.5-16.0); LYMPH # 0.5 (1.2-3.4); LYMPH % 6.4 % (20.0-51.0); MEAN CELL VOLUME 90 fl (80.0-100.0); MEAN CORPUSCULAR HEMOGLOBIN 30 pg (27.0-31.0); MEAN CORPUSCULAR HGB CONC 33 g/dl (33.0-37.0); MEAN PLATELET VOLUME 9.1 fl (7.4-10.4); MONO # 0.6 (0.1-0.6); MONO % 7.7 % (1.7-9.3); PLATELET COUNT 168 K/mm3 (130-400); RED BLOOD COUNT 3.39 M/mm3 (4.10-5.30); REDCELL DISTRIBUTION WIDTH-CV 12.9 % (11.5-14.5)
[2021-05-07 18:48] LABS: HEMATOCRIT 30.5 % (37.0-47.0)
[2021-05-07 18:59] LABS: ALANINE AMINOTRANSFERASE 15 U/L (4-34); ALBUMIN 3.6 gm/dL (3.5-5.0); ALKALINE PHOSPHATASE 69 U/L (50-136); ANION GAP 7 mmol/L (7-16); AST,SGOT 24 U/L (15-37); BILIRUBIN,TOTAL 0.4 mg/dL (0.0-1.0); BLOOD UREA NITROGEN 23 mg/dL (7-17); CALCIUM 8.6 mg/dL (8.4-10.2); CARBON DIOXIDE 26 mmol/L (22-30); CHLORIDE 99 mmol/L (98-107); CREATININE, serum 0.76 (0.52-1.25); GLUCOSE 126 mg/dL (74-106); POTASSIUM 4.7 mmol/L (3.4-5.0); SODIUM 132 mmol/L (137-145); TOTAL PROTEIN 6.2 gm/dL (6.4-8.2)
[2021-05-07 19:10] LABS: ARTERIAL BLD GAS O2 SATURATION 96.1 % (92-100); ARTERIAL BLD GAS TCO2 CT 25.1; ARTERIAL BLOOD GAS BASE EXCESS -1.2 (-2-2); ARTERIAL BLOOD GAS HCO3 23.8 meq/L (22-26); ARTERIAL BLOOD GAS PCO2 41.3 mmHg (35-45); ARTERIAL BLOOD GAS pH 7.38 (7.35-7.45)
--- NOTE | 2021-05-07 19:10 | NUR ---
Bedside shift report received, assumed care for saw feeder. Assessment complete. Still unresponsive-does flinch to sternal rub. VS currently stable. O2 sat 100% on room air. Lung sounds diminished all guido. Dressing to right knee-bulky white/sari-CDI. CMS WNL. Ice pack on. SCD/EDGARDO to LLE. D5LR@60mls/hr to left forearm IV-infusing without difficulty. Doran cath with clear yellow urine. Noted to have decreased output. WIll monitor this. Call light in reach. Will monitor.
[2021-05-07 19:11] LABS: TROPONIN-I < 0.012 ng/mL (0.000-0.035)
--- NOTE | 2021-05-07 19:25 | NUR ---
Clarification made with hospitalist CABRERA Marin on Second Narcan ordered. States sto give second dose but at 0.1mg instead of 0.4mg. Charted accordingly in OCT.
--- NOTE | 2021-05-07 19:35 | NUR ---
Update given to CABRERA Marin-Hospitalist of blood pressures 100s/30s as well as decresed urine output of 30mls in 2 hours. New orders received and initiated.
--- NOTE | 2021-05-07 20:05 | NUR ---
Patient to CT at this time.
--- NOTE | 2021-05-07 20:31 | NUR ---
Pt back to room [address]
--- NOTE | 2021-05-07 21:00 | NUR ---
C/O pain to right knee, rating pain 8/10 on pain scale-described as throbbing. Notified Hospitalist of increased pain level and new orders received and initiated.
--- NOTE | 2021-05-07 21:40 | NUR ---
After repositioning right lower extremity and placing another fresh ice pack patient is rating pain 0/10. Much more alert and talking on phone with friends/family. Denies current needs. Call light in reach. WIll monitor.
--- NOTE | 2021-05-07 23:30 | NUR ---
Patient much more awake and conversational. States she has lost total track of time and does not know what happened to her. Discussed events earlier in shift. States she has had reactions several times to antibiotics/anesthesia and other medications. We discussed what medications she had received. When we discussed her nausea/emesis explained phenergan was given IV. She states "Thats the medications they gave me at the [facility] hospital that I reacted to. I cant take that." Spoke with CABRERA Marin and [facility] Keanu. Phenergan added to adverse reaction list. Denies current needs. Call light in reach. Will monitor.
[2021-05-08 03:18] VITALS: BP 134/47; PULSE 53; TEMP 98.2
--- NOTE | 2021-05-08 03:30 | NUR ---
Has been much more alert later this shift but still with slurred speech and slight confusion. Toradol managing pain with fresh ice packs applied. Has not tolerated any PO except a small amount of water. Fluids continue to infuse due to decreased UOP and lower blood pressure. Has had several doses of zofran for nausea. EDGARDO/SCD to left lower extremity. Call light in reach. Will monitor.
[2021-05-08 03:37] LABS: COLLECTION METHOD CATHETER
[2021-05-08 03:51] LABS: PH 5 (5-8); SQUAMOUS EPITHELIAL 0-2 /hpf; URINE APPEARANCE Hazy; URINE BACTERIA None Seen /hpf; URINE BILIRUBIN Negative (NEGATIVE); URINE BLOOD 3+ (NEGATIVE); URINE COLOR Yellow; URINE GLUCOSE Negative (NEGATIVE); URINE KETONE Negative (NEGATIVE); URINE LEUKOCYTE ESTERASE Trace (NEGATIVE); URINE NITRATE Negative (NEGATIVE); URINE PROTEIN(semi-quant) 1+ (NEGATIVE); URINE RBC >50 /hpf; URINE UROBILINOGEN Negative (NEGATIVE)
--- NOTE | 2021-05-08 05:45 | NUR ---
Clarification on IV fluid orders with CABRERA Marin-Hospitalist. New order received to INT at this time due to history of fluid overload and monitor I&O closely. Patient seems a little more confused now compared to earlier. Asking what happened last night and wondering why she couldnt remember anything. Discussed with patient again. Denies any other questions/concerns. Call light in reach. Will monitor.
[2021-05-08 07:33] LABS: HEMOGLOBIN 8.9 g/dl (12.5-16.0)
[2021-05-08 07:59] VITALS: BP 126/51; PULSE 71; TEMP 98.1
--- NOTE | 2021-05-08 10:13 | NUR ---
PT UP WITH THERAPY, SLIGHT DIZZINESS, WALKED TO DOOR THEN BACK TO BED. PAIN CONTROLLED WITH PO MEDS. PT WOULD LIKE PLACEMENT FOR REHAB POST HOSPITAL STAY. DRESSING TO RIGHT KNEE CDI DR. GIBSON CHANGED DRESSING THIS AM PLACING AQUACELL OVER INCISION. EDGARDO HOSE PLACED OVER AQUACEL.
--- NOTE | 2021-05-08 10:38 | NUR ---
platform worker met with patient to discuss discharge planning and collaborated with [facility]. Patient states that she resides alone and desires short term physical rehabilitation at [facility]. Patient stated she contacted above facility previously advising that she wishes to be placed there upon discharge. Patient's primary care provider is Dr Rivera. Worker contacted Melo at [facility] and gave a referral. Will await screening.
[2021-05-08 11:40] VITALS: BP 112/48; PULSE 59; TEMP 97.7
--- NOTE | 2021-05-08 12:34 | NUR ---
First visit from the director of neurology. No needs right now.
--- NOTE | 2021-05-08 13:35 | NUR ---
Melo with [facility] accepts patient to skilled care. Worker met with patient and contacted her son, Cesar Villalta #[phone], per patient request and advise of the above informaition. Plan: [facility] has accepted to skilled care.
--- NOTE | 2021-05-08 13:42 | NUR ---
PT REFUSED AFTERNOON THERAPY AFTER WALKING TO DOOR SHE SAID "THE M.S. WONT LET ME DO ANYMORE." PT WANTING PLACEMENT TO [facility]."
--- NOTE | 2021-05-08 14:28 | NUR ---
UPDATED PT ON ACCEPTANCE TO [facility]. PT VERBALIZED UNDERSTANDING.
[2021-05-08 16:10] VITALS: BP 130/49; PULSE 64; TEMP 97.6
[2021-05-08 19:50] VITALS: BP 126/39; PULSE 69; TEMP 97.6
--- NOTE | 2021-05-08 20:00 | NUR ---
Bedside shift report received, assumed care for operational intelligence analyst. Sitting up in chair. Assessment complete. VS stable. A&Ox3. Denies nausea/shortness of breath. Tolerating PO. Has not completed much therapy today. Per report from [facility]hift refused afternoon therapy. Plan discussed to ambulate this shift at least one to increase activity level in order to remove rose cath. States she is currently exhausted from events of the day. Will re-attempt to ambulate later this shift. Aquacell dressing to right knee with scant amount of old drainage. Edema noted. Denies current needs. Call light in reach. Will monitor.
[2021-05-09 00:11] VITALS: BP 120/39; PULSE 74; TEMP 97.6
--- NOTE | 2021-05-09 03:29 | NUR ---
PT AWAKENED TO ADMINISTER IV TORADOL. PT IS AGREEABLE TO GOING FOR WALK @ THIS TIME. PT IS ABLE TO INDEPENDENTLY MOVE LEGS IN AND OUT OF BED. AMBULATES WITH MINIMAL ASSISTANCE OF 2 WITH GAITBELT ET WALKER, APPROXIMATELY 30FT FROM BED. GAIT IS HESITANT BUT STEADY. PT IS ASSISTED BACK TO BED. RIGHT KNEE ELEVATED ET ICE APPLIED. SCDS ET EDGARDO HOSE ON. FRIED CATHETER IS EMPTIED, URINE IS HEVER ET CLOUDY. PT DENIES ANY NEEDS @ THIS TIME. CALL LIGHT WITHIN REACH.
[2021-05-09 03:42] VITALS: BP 108/69; PULSE 77; TEMP 97.9
--- NOTE | 2021-05-09 04:17 | NUR ---
ROUND WHITE TABLET FOUND ON PT'S FLOOR BESIDE BED. IDENTIFIES ON LEXICOMP PO LASIX 40MG. MEDICATION WASTED.
[2021-05-09 07:59] LABS: HEMATOCRIT 22.3 % (37.0-47.0); HEMOGLOBIN 7.5 g/dl (12.5-16.0); MEAN CELL VOLUME 93 fl (80.0-100.0); MEAN CORPUSCULAR HEMOGLOBIN 31 pg (27.0-31.0); MEAN CORPUSCULAR HGB CONC 34 g/dl (33.0-37.0); MEAN PLATELET VOLUME 10.3 fl (7.4-10.4); PLATELET COUNT 116 K/mm3 (130-400); RED BLOOD COUNT 2.39 M/mm3 (4.10-5.30); REDCELL DISTRIBUTION WIDTH-CV 13.2 % (11.5-14.5)
[2021-05-09 08:01] VITALS: PULSE 69; TEMP 98.2
[2021-05-09 08:11] LABS: CALCIUM 7.9 mg/dL (8.4-10.2); CREATININE, serum 0.94 (0.52-1.25); POTASSIUM 4.8 mmol/L (3.4-5.0)
--- NOTE | 2021-05-09 08:15 | NUR ---
PT RESTING IN BED RESISTING GETTING UP TO RECLINER FOR BREAKFAST. ENCOURAGED TO GET UP BUT PT WANTS TO "EASE INTO MY DAY". PT IN BED EATING BREAKFAST AND WILL TAKE AM MEDS AFTER EATING BREAKFAST. PT REPORTS"TOO MANY INTERUPTIONS DURING MY MORNING. EXPLAINED THAT WE HAVE ALOT TO DO PRIOR TO AM THERAPY.
--- NOTE | 2021-05-09 09:41 | NUR ---
PT CONTINUES TO BE CONTRAIRIAN WITH ALL CARES AND MEDICTION ADMINISTRATION. PT REFUSING TO SHOWER WITH OT. REFUSING AM MEDS EXCEPT SPECIFIC MEDS THAT SHE WAITS UNTIL ALL ARE PUT INTO MED CUP AND THEN ONLY WANTS CERTAIN ONES BUT UNABLE TO VERBALIZE WHICH ONES. EXPLAINED TO PT THAT OUR MEDS MAY NOT LOOK EXACTLY LIKE THE MEDS SHE TAKE AT HOME BUT SHE PICKED OUT RANDOM MEDS THAT SHE WOULD TAKE BASED ON SHAPE AND COLOR. ADVISED THIS IS NOT A SAFE OR EFFECTIVE METHOD OF TAKING MEDICATION. SHE REPLIED"I HAVE TO DO WHAT IS BEST FOR ME."
[2021-05-09 15:52] VITALS: BP 121/32; PULSE 66; TEMP 98.3
[2021-05-09 17:02] LABS: HEMATOCRIT 23.4 % (37.0-47.0); HEMOGLOBIN 7.7 g/dl (12.5-16.0)
[2021-05-09 20:43] VITALS: BP 141/52; PULSE 77; TEMP 98.7
--- NOTE | 2021-05-09 21:16 | NUR ---
PATIENT IS CALM IN BED.DUE MEDS GIVEN.AMBULATED TO THE BATHROOM AND TOLERATED WELL.DENIES PAIN.NO OTHER NEEDS AT THIS TIME.
[2021-05-10 00:42] VITALS: BP 134/40; PULSE 90; TEMP 98.6
[2021-05-10 03:06] VITALS: BP 117/40; PULSE 89; TEMP 98.6
--- NOTE | 2021-05-10 05:53 | NUR ---
Patient had uneventful night.Patient is up at galo with assistance and a walker. Denies pain.Safety measures in place. No other needs at this time.
[2021-05-10] MEDS ORDERED: ASPI325T6 PO (05:57)
[2021-05-10] MEDS ORDERED: CELEBREX 200MG200 MG PO (05:57)
[2021-05-10] MEDS ORDERED: NORCO 325 MG-51 TAB PO (05:58)
[2021-05-10] MEDS ORDERED: ULTRAM 50MG TAB50 MG PO (05:58)
[2021-05-10] MEDS ORDERED: TYLENOL 325MG325 MG PO (05:59)
[2021-05-10 08:00] VITALS: BP 118/44; PULSE 92; TEMP 98.5
--- NOTE | 2021-05-10 09:15 | NUR ---
AFTER WORKING WITH PT THIS AM PATIENT DECIDED TO ASK FOR PRN PAIN MEDS. RATES PAIN IN RLE RATED AT 5-6. GAVE PRN ULTRAM.
[2021-05-10 11:28] VITALS: BP 120/40; PULSE 82; TEMP 97.9
--- NOTE | 2021-05-10 15:25 | NUR ---
PATIENT DISCHARGING TO [facility]IA [facility]. GAVE INFO PACKET TO USED CAR SALES MANAGER. NO IV SITE. PATIENT IS DRESSED, PACKED AND PHARMACY BROUGHT UP HER HOME MEDICATION FOR DISCHARGE. PATIENT DISCHARGED TO [facility]'S CARE.
--- NOTE | 2021-05-12 14:08 | NUR ---
SW called by [facility] staff stating the DC documenation was never provided to facility. SW faced DC orders due to request to facility. Patient discharged on 05/10/2021. Nothing further.
== END 2021-05-10 15:25 | DRG 470 ==
LOC: SDCO 05:36 → SURG 05:37 → SDCO 07:30 → SURG 07:30 → EDSTATUS 10:15 → SURG 10:15 → SDCO 10:15 → SURG 10:15 → SDCO 05-08 05:14 → SURG 05-08 05:14 → SDCO 05-08 05:15 → SURG 05-08 05:15
PROVIDERS: Physician Assistant; Student in an Organized Health Care Education/Training Program; ADMIT Orthopaedic Surgery
PROC: 0SRC0J9 Replacement of Right Knee Joint with Synthetic Substitute, Cemented, Open Approach (ICD-10-PCS; principal; 2021-05-07 07:30)
DX: M17.0 Bilateral primary osteoarthritis of knee (principal); G35 Multiple sclerosis; E03.9 Hypothyroidism, unspecified; K21.9 Gastro-esophageal reflux disease without esophagitis; I10 Essential (primary) hypertension; D64.9 Anemia, unspecified; Z20.822 Contact with and (suspected) exposure to COVID-19; R41.0 Disorientation, unspecified; T43.3X5A Adverse effect of phenothiazine antipsychotics and neuroleptics, initial encounter; Y92.239 Unspecified place in hospital as the place of occurrence of the external cause; R60.0 Localized edema; Z79.899 Other long term (current) drug therapy; Z79.890 Hormone replacement therapy
CPT/HCPCS: OP; 99232-AI; 99233-AI; A4314; A9284; C1713; C1776; J0360; J1170; J1885; J2310; J2405; J2550; J7030; J7120; J7121; Q9967

== ENCOUNTER 2021-07-01 10:45 | Outpatient (RCR) | payer MEDICARE, OTHER ==
[~2021-07-01 10:45] MED LIST changes: +ASPI325T6 PO; +CELEBREX 200MG200 MG PO; +NORCO 325 MG-51 TAB PO; +ULTRAM 50MG TAB50 MG PO
== END 2021-07-14 | disposition home or self-care (01) ==
LOC: MKS.ESL.PT
DX: R26.9 Unspecified abnormalities of gait and mobility (principal); Z96.651 Presence of right artificial knee joint

== ENCOUNTER 2021-08-19 13:00 | Outpatient (RCR) | payer MEDICARE, OTHER | END 2021-08-23 | disposition home or self-care (01) | LOC: MKS.ESL.PT | DX: R26.9 Unspecified abnormalities of gait and mobility (principal) ==

== ENCOUNTER 2022-01-15 22:03 | Emergency (ER) | payer MEDICARE, OTHER ==
[~2022-01-15] VITALS: Ht 162.6 cm; Wt 77.3 kg
[2022-01-15 22:06] VITALS: BP 170/89; TEMP 97.5
[2022-01-15] MEDS ORDERED: CIPRO750 MG PO (22:33)
[2022-01-15 22:45] VITALS: PULSE 78
[2022-01-16] MEDS ORDERED: DOXYCYCLINE 10100 MG PO (16:02)
== END 2022-01-15 22:50 | disposition home or self-care (01) ==
LOC: COL.ER 22:03
DX: S81.852A Open bite, left lower leg, initial encounter (principal); Z88.0 Allergy status to penicillin; W55.01XA Bitten by cat, initial encounter

== ENCOUNTER 2022-01-16 15:11 | Emergency (ER) | payer MEDICARE, OTHER ==
[~2022-01-16] VITALS: Ht 162.6 cm; Wt 77.3 kg
[~2022-01-16 15:11] MED LIST changes: +CIPRO750 MG PO
[2022-01-16 15:23] VITALS: TEMP 98.1
[2022-01-16] MEDS ORDERED: DOXYCYCLINE 10100 MG PO (16:02)
[2022-01-16 16:15] VITALS: BP 151/67; PULSE 54
== END 2022-01-16 16:19 | disposition home or self-care (01) ==
LOC: COL.ER 15:11
DX: L25.8 Unspecified contact dermatitis due to other agents (principal); T36.8X5A Adverse effect of other systemic antibiotics, initial encounter; Z88.1 Allergy status to other antibiotic agents; Z28.310 Unvaccinated for COVID-19

== ENCOUNTER 2022-02-14 08:15 | Outpatient (RCR) | payer MEDICARE, OTHER | END 2022-02-20 | disposition home or self-care (01) | LOC: MKS.ESL.PT | DX: R53.1 Weakness (principal); R26.81 Unsteadiness on feet; M79.604 Pain in right leg; M79.606 Pain in leg, unspecified ==

== ENCOUNTER 2022-03-21 08:00 | Outpatient (RCR) | payer MEDICARE, OTHER ==
[2022-03-23] MEDS ORDERED: DOXYCYCLINE 10100 MG PO ×3 (07:03→15:54)
[2022-03-24] MEDS ORDERED: CLEOCIN HCL300 MG PO (21:24)
== END 2022-03-23 | disposition home or self-care (01) ==
LOC: MKS.ESL.PT
DX: R53.1 Weakness (principal); R26.81 Unsteadiness on feet; M79.604 Pain in right leg; M79.605 Pain in left leg

== ENCOUNTER 2022-03-23 06:16 | Emergency (ER) | payer MEDICARE, OTHER ==
[~2022-03-23] VITALS: Ht 162.6 cm; Wt 79.1 kg
[2022-03-23 06:25] VITALS: BP 138/84; TEMP 98.1
[2022-03-23] MEDS ORDERED: DOXYCYCLINE 10100 MG PO ×3 (07:03→15:54)
[2022-03-23 07:12] VITALS: PULSE 62
[2022-03-24] MEDS ORDERED: CLEOCIN HCL300 MG PO (21:24)
== END 2022-03-23 07:21 | disposition home or self-care (01) ==
LOC: COL.ER 06:16
DX: S51.852A Open bite of left forearm, initial encounter (principal); Z88.0 Allergy status to penicillin; Z28.311 Partially vaccinated for COVID-19; W55.01XA Bitten by cat, initial encounter

== ENCOUNTER 2022-03-24 20:34 | Emergency (ER) | payer MEDICARE, OTHER ==
[~2022-03-24] VITALS: Ht 162.6 cm; Wt 79.1 kg
[2022-03-24] MEDS ORDERED: CLEOCIN HCL300 MG PO (21:24)
[2022-03-24 21:44] VITALS: BP 148/70; PULSE 62; TEMP 98.3
== END 2022-03-24 21:44 | disposition home or self-care (01) ==
LOC: COL.ER 20:34
DX: S51.852A Open bite of left forearm, initial encounter (principal); Z88.1 Allergy status to other antibiotic agents; Z28.311 Partially vaccinated for COVID-19; W55.01XA Bitten by cat, initial encounter

== ENCOUNTER 2022-05-22 15:03 | Emergency (ER) | payer MEDICARE, OTHER ==
[~2022-05-22] VITALS: Ht 162.6 cm; Wt 79.1 kg
[~2022-05-22 15:03] MED LIST changes: +CLEOCIN HCL300 MG PO
[2022-05-22 15:10] VITALS: TEMP 98.2
[2022-05-22] MEDS ORDERED: DOXYCYCLINE 10100 MG PO (15:44)
[2022-05-22 15:55] VITALS: BP 128/80; PULSE 69
== END 2022-05-22 15:55 | disposition home or self-care (01) ==
LOC: COL.ER 15:03
DX: S61.551A Open bite of right wrist, initial encounter (principal); Z88.0 Allergy status to penicillin; W55.01XA Bitten by cat, initial encounter

== ENCOUNTER 2024-04-17 18:26 | Emergency (ER) | payer MEDICARE, OTHER ==
[~2024-04-17] VITALS: Ht 165.1 cm; Wt 77.3 kg
[~2024-04-17 18:26] MED LIST changes: +B-12 250 MCG PO; +BETAPACE 120MG120 MG PO; +CEPHALEXIN500 M1 PO; +ELIQUIS 5MG PO; +MAGNESIUM200 MG PO; +PRINIVIL10 MG PO; +TURMERIC500 MG PO; +VITAMIN D31000 I1 PO; +ZOFRAN ODT4 MG PO
[2024-04-17 18:31] VITALS: TEMP 99
[2024-04-17] MEDS ORDERED: METHYLPREDNISOLONE SOD SUCC IV ONE (20:15)
[2024-04-17] MEDS ORDERED: D5W IV ONE (20:15)
[2024-04-17 23:25] VITALS: BP 142/83; PULSE 55
== END 2024-04-17 23:25 | disposition home or self-care (01) ==
LOC: COL.ER 18:26
DX: H46.9 Unspecified optic neuritis (principal); G35 Multiple sclerosis
CPT/HCPCS: J2919; J7060

== ENCOUNTER → 2024-05-05 | Outpatient (CLI) | payer MEDICARE, OTHER ==
[~2024-05-05] MED LIST changes: +Gadoterate 20 ML VIAL IV ONE
== END ==
LOC: COL.RAD 07:13
DX: G35 Multiple sclerosis (principal); H46.9 Unspecified optic neuritis
CPT/HCPCS: A9575